=== PATIENT | male | born 1945 | race Asian ===

== ENCOUNTER 2023-09-04 10:23 | Day surgery (SDC) | payer OTHER ==
[2023-09-03 12:12] VITALS: BMI 22.1
[2023-09-04] MEDS ORDERED: PROPOFOL 20 ML ONE (13:25)
[2023-09-04] MEDS ORDERED: Glycopyrrolate 0.2 MG/ML 5 ML SYRINGE ONE (13:32)
== END 2023-09-04 15:09 | disposition home or self-care (01) ==
LOC: SDC 10:23
PROVIDERS: ATTEND Internal Medicine Gastroenterology
PROC: 0DBP8ZZ Excision of Rectum, Via Natural or Artificial Opening Endoscopic (ICD-10-PCS; principal; 2023-09-04)
DX: Z12.11 Encounter for screening for malignant neoplasm of colon (principal); K62.1 Rectal polyp; K57.30 Diverticulosis of large intestine without perforation or abscess without bleeding; K21.9 Gastro-esophageal reflux disease without esophagitis; K44.9 Diaphragmatic hernia without obstruction or gangrene; N40.0 Benign prostatic hyperplasia without lower urinary tract symptoms; I10 Essential (primary) hypertension; E78.5 Hyperlipidemia, unspecified; Z86.010 Personal history of colon polyps
CPT/HCPCS: 88305; J2704